=== PATIENT | female | born 1965 | race Two or more races ===

== ENCOUNTER 2019-11-13 05:35 | Day surgery (SDC) | payer OTHER ==
[~2019-11-13 05:35] MED LIST: GABAPENTIN PO
[2019-11-13] MEDS ORDERED: ULTRACET PO (08:32)
== END 2019-11-13 10:39 | disposition home or self-care (01) ==
LOC: CIR.AMB 05:35
PROVIDERS: ATTEND Surgery
DX: D01.3 Carcinoma in situ of anus and anal canal (principal); Z20.828 Contact with and (suspected) exposure to other viral communicable diseases; A63.0 Anogenital (venereal) warts